=== PATIENT | male | born 1970 | race Two or more races ===

== ENCOUNTER 2022-05-16 15:54 | Inpatient (IN) | payer OTHER ==
[~2022-05-16] VITALS: Ht 170.2 cm; Wt 117.7 kg
[2022-05-16 18:57] LABS: Basophils # (auto) 0.1 10 ^3/uL (0-0.2); Basophils % (auto) 0.5 % (0.0-2.0); Eosinophils # (auto) 0.1 10 ^3/uL (0-0.8); Eosinophils % (auto) 0.6 % (0.0-7.0); Hematocrit 44.4 % (41.0-53.0); Hemoglobin 15.2 g/dL (13.5-17.5); Lymphocytes # (auto) 1.5 10 ^3/uL (0.4-5.4); Lymphocytes % (auto) 15.1 % (10.0-50.0); Mean Corpuscular Hemoglobin 29.4 pg (28.0-32.0); Mean Corpuscular Hgb Conc. 34.3 g/dL (32.0-36.0); Mean Corpuscular Volume 85.9 fL (80.0-100.0); Monocytes # (auto) 0.6 10 ^3/uL (0-1.3); Monocytes % (auto) 6.2 % (0.0-12.0); Neutrophils # (auto) 7.7 10 ^3/uL (1.6-8.6); Neutrophils % (auto) 77.6 % (37.0-80.0); Nucleated Red Blood Cells % 0.4 %; Red Blood Cells 5.16 10^6/uL (4.5-5.90); Red Cell Distribution Width 12.7 % (11.8-14.3)
[2022-05-16 19:14] LABS: Albumin 4.1 g/dL (3.4-5.0); BUN/Creatinine Ratio 17.9 (10.0-20.0); Calcium 9.3 mg/dL (8.5-10.1); Potassium 3.8 mmol/L (3.5-5.1)
[2022-05-16 19:20] LABS: Bilirubin, Total 0.5 mg/dL (0.2-1.0)
[2022-05-16] MEDS ORDERED: HYDROcodone-ACET 5/325MG TAB PO ONE (21:30)
[2022-05-16] MEDS ORDERED: ONDANSETRON ODT 4 MG TAB PO ONE (21:30)
[2022-05-17] MEDS ORDERED: ONDANSETRON HCL 4 MG/2 ML VIAL IV PRN (00:30)
[2022-05-17] MEDS ORDERED: HCTZ 25 MG TAB PO ONE (00:45)
[2022-05-17 09:48] VITALS: BP 121/70
[2022-05-17] MEDS ORDERED: CLOPIDOGREL BISULFATE 75 MG TAB PO ONE (10:00)
[2022-05-17] MEDS ORDERED: LISINOPRIL 20 MG TAB PO ONE (10:00)
[2022-05-17 11:24] VITALS: BP 121/70
[2022-05-17 13:00] VITALS: BP 120/77
[2022-05-17] MEDS: CLOPIDOGREL BISULFATE 75 MG TAB PO SCH (16:33)
[2022-05-17] MEDS: HCTZ 25 MG TAB PO SCH (16:33)
[2022-05-17] MEDS: LISINOPRIL 20 MG TAB PO SCH (16:33)
[2022-05-17] MEDS: HYDROcodone-ACET 10/325MG TAB PO PRN (16:34)
[2022-05-17 17:00] VITALS: BP 123/83
[2022-05-17] MEDS ORDERED: HYDR25TA4 PO (19:00)
[2022-05-17] MEDS ORDERED: LISI20TA28 PO (19:00)
[2022-05-17] MEDS ORDERED: ATOR20TA50 PO (19:00)
[2022-05-17] MEDS: ATORVASTATIN 20 MG TAB PO SCH (20:57)
[2022-05-17 22:00] VITALS: BP 104/63
[2022-05-17] MEDS ORDERED: ATORVASTATIN 20 MG TAB PO ONE (22:00)
[2022-05-18 05:15] VITALS: BP 101/68
[2022-05-18 09:00] VITALS: BP 124/81
[2022-05-18] MEDS: HCTZ 25 MG TAB PO SCH (10:05)
[2022-05-18] MEDS: LISINOPRIL 20 MG TAB PO SCH (10:05)
[2022-05-18] MEDS: CLOPIDOGREL BISULFATE 75 MG TAB PO SCH (10:05)
[2022-05-18 13:00] VITALS: BP 106/53
[2022-05-18 16:43] VITALS: BP 118/64
[2022-05-18 22:00] VITALS: BP 114/69
[2022-05-18] MEDS: ATORVASTATIN 20 MG TAB PO SCH (22:16)
[2022-05-18 22:33] VITALS: BP 114/69
[2022-05-18] MEDS: HYDROcodone-ACET 10/325MG TAB PO PRN (22:51)
[2022-05-19 05:25] VITALS: BP 99/61
== END 2022-05-19 06:45 | DRG 103 ==
LOC: ER 15:54 → EEVIPCON 15:54 → OVERFLOW 05-17 00:39 → CENTRAL 05-17 09:07
PROVIDERS: ADMIT Internal Medicine; ATTEND Internal Medicine
DX: G43.909 Migraine, unspecified, not intractable, without status migrainosus (principal); E78.5 Hyperlipidemia, unspecified; F14.90 Cocaine use, unspecified, uncomplicated; I10 Essential (primary) hypertension; Z20.822 Contact with and (suspected) exposure to COVID-19; Z82.3 Family history of stroke
CPT/HCPCS: 36415; 70450; 70551; 71045; 80053; 82962; 85025; 87426; 93005; 93306; 93886; 99291; G0378; Q0162